=== PATIENT | female | born 1965 | race Caucasian/White ===

== ENCOUNTER 2018-07-16 08:00 | Emergency (ER) | payer SELFPAY ==
[~2018-07-16] VITALS: Ht 165.1 cm; Wt 101.2 kg
[~2018-07-16 08:00] MED LIST: BUPR150T20 PO; BUPR150T73; CARI350T PO; CITA40TA12 PO; DEXT10TA7
[2018-07-16 08:12] VITALS: BP 114/74
--- NOTE | 2018-07-16 08:43 | NUR ---
Pt to room from lobby.
--- NOTE | 2018-07-16 08:55 | NUR ---
PT AMBULATORY TO ROOM 17 W/ C/O LEFT SIDED SINUS PAIN W/ A PRODUCTIVE COUGH AND SOB X 11 DAYS. PT RESTING ON GURNEY. GOLDMAN.
== END 2018-07-16 09:24 | disposition home or self-care (01) ==
LOC: ED 09:00
DX: J20.9 Acute bronchitis, unspecified (principal); E11.9 Type 2 diabetes mellitus without complications
CPT/HCPCS: 93005; 99283

== ENCOUNTER 2019-11-29 18:16 | Emergency (ER) | payer BC, MEDICAID ==
[~2019-11-29] VITALS: Ht 165.1 cm; Wt 108.0 kg
[~2019-11-29 18:16] MED LIST changes: -BUPR150T20 PO; +BUPR150T28 PO
[2019-11-29 18:18] VITALS: BP 117/87
--- NOTE | 2019-11-29 18:56 | NUR ---
nil x 1
--- NOTE | 2019-11-29 20:40 | NUR ---
R VELCRO WRIST SPLINT WAS APPLIED BY MACHINE CEMENTER. PT LEFT ED BEFORE RECEIVING DISCHARGE PAPERS AND RX. AMBULATED OUT WITHOUT DIFFICULTY.
== END 2019-11-29 20:50 | disposition home or self-care (01) ==
LOC: ED 20:20
DX: S60.221A Contusion of right hand, initial encounter (principal); G89.11 Acute pain due to trauma; E11.9 Type 2 diabetes mellitus without complications; W54.1XXA Struck by dog, initial encounter; Y93.89 Activity, other specified; Y92.098 Other place in other non-institutional residence as the place of occurrence of the external cause; Y99.8 Other external cause status
CPT/HCPCS: 29125; 99283

== ENCOUNTER 2019-12-10 21:05 | Observation (INO) | payer MEDICAID, OTHER ==
[~2019-12-10] VITALS: Ht 165.1 cm; Wt 109.1 kg
[2019-12-10] MEDS ORDERED: ASPIRIN 81 MG TABLET CHEW ONE (21:46)
[2019-12-10] MEDS ORDERED: MORPHINE SULFATE 4 MG/ML, 1ML ONE (21:46)
[2019-12-10] MEDS ORDERED: ONDANSETRON 2MG/ML, 2ML ONE (21:46)
[2019-12-10 21:50] LABS: BASOPHILS # (AUTO) 0.06 x10^3/uL (0-0.1); BASOPHILS % (AUTO) 1 % (0-1); EOSINOPHILS % (AUTO) 3 % (1-7); LYMPHOCYTES # (AUTO) 2.28 x10^3/uL (1-3.4); LYMPHOCYTES % (AUTO) 29 % (22-44); MD NO; MEAN CORPUSCULAR HEMOGLOBIN 27.7 pg (27.0-34.8); MEAN CORPUSCULAR HGB CONC 33.1 g/dL (32.4-35.8); MEAN CORPUSCULAR VOLUME 83.8 fL (80-100); MEAN PLATELET VOLUME 7.6 fL (7.4-10.4); MONOCYTES # (AUTO) 0.71 x10^3/uL (0.2-0.8); MONOCYTES % (AUTO) 9 % (2-9); NEUTROPHILS # (AUTO) 4.65 x10^3/uL (1.8-6.8); NEUTROPHILS % (AUTO) 59 % (42-75); PLATELET COUNT 371 x10^3/uL (130-400); RED BLOOD COUNT 5.32 x10^6/uL (3.82-5.3); RED CELL DISTRIBUTION WIDTH 14.1 % (9.6-15.2)
[2019-12-10] MEDS: MORPHINE SULFATE 4 MG/ML, 1ML IVPush PRN (21:54)
[2019-12-10] MEDS ORDERED: ABILIFY PO (21:57)
[2019-12-10 22:00] LABS: ALANINE AMINOTRANSFERASE 28 U/L (12-78); ALBUMIN 3.4 g/dL (3.4-5.0); ANION GAP 7 mmol/L (5-15); CALCIUM 9.6 mg/dL (8.5-10.1); CHLORIDE 111 mmol/L (98-107)
[2019-12-10] MEDS ORDERED: ASPIRIN 81 MG TABLET CHEW PO ONE (22:00)
[2019-12-10] MEDS ORDERED: SODIUM CHLORIDE FLUSH 10ML SYR IVF ONE (22:00)
[2019-12-10] MEDS ORDERED: ONDANSETRON 2MG/ML, 2ML IVPush ONE (22:00)
[2019-12-10] MEDS ORDERED: NITROGLYCERIN SINGLE TAB 0.4 MG SL PRN (22:00)
--- NOTE | 2019-12-10 22:03 | NUR ---
PT CAME IN TODAY DUE TO CHEST PAIN THAT STARTED THIS MORNING AND HAS BEEN WORSENING THROUGHOUT THE DAY. PT STATES MOM HAS A HX OF IL. PT HAS NO CARDIAC HISTORY. PT PULSES 2+, GROSS NEURO AND CMS INTACT. NAD, VSS. WCTM. CALL LIGHT ON LAP, PT MEDICATED PER MAR. WAITING FOR TEST RESULTS.
[2019-12-10 22:04] LABS: ALKALINE PHOSPHATASE 123 U/L (45-117); BILIRUBIN,TOTAL 0.2 mg/dL (0.2-1.0); CREATININE 0.91 mg/dL (0.55-1.02); TOTAL PROTEIN 6.8 g/dL (6.4-8.2); TROPONIN I < 0.015 ng/mL (0.000-0.045)
[2019-12-10 23:31] VITALS: BP 105/66
[2019-12-11] MEDS ORDERED: NITROGLYCERIN 0.4 MG BOTTLE (25 TABS) SL PRN (00:30)
[2019-12-11] MEDS ORDERED: NITROGLYCERIN 0.4 MG/SPRAY SL PRN (00:30)
[2019-12-11] MEDS: MORPHINE SULFATE 4 MG/ML, 1ML IVPush PRN (00:39)
[2019-12-11 00:57] VITALS: BP 105/66
[2019-12-11] MEDS ORDERED: MORPHINE SULFATE 4 MG/ML, 1ML IVPush PRN (01:00)
[2019-12-11] MEDS ORDERED: DOCUSATE 100 MG CAPSULE PO PRN (01:30)
[2019-12-11] MEDS ORDERED: NICOTINE 21 MG/24 HR PATCH.TD24 TD SCH (01:30)
[2019-12-11] MEDS ORDERED: MELATONIN 5 MG TABLET PO PRN (01:30)
[2019-12-11] MEDS ORDERED: hydrALAzine 20 MG/ML, 1ML IVPush PRN (01:30)
[2019-12-11] MEDS ORDERED: MAALOX/HYOSCYAMINE/LIDOCAINE 45 ML BTL PO ONE ×2 (01:30→13:30)
[2019-12-11] MEDS ORDERED: morphine SULFATE 10 MG/ML, 1ML IVPush PRN (01:30)
[2019-12-11] MEDS ORDERED: ENOXAPARIN 40 MG/0.4 ML SQ SCH (01:30)
[2019-12-11] MEDS ORDERED: ACETAMINOPHEN 325 MG TABLET PO PRN (01:30)
[2019-12-11 05:27] LABS: CHOLESTEROL, TOTAL 165 mg/dL (140-239); TRIGLYCERIDES 123 mg/dL (50-200); VLDL CHOLESTEROL 25 mg/dL (0-25)
[2019-12-11 05:30] LABS: TROPONIN I < 0.015 ng/mL (0.000-0.045)
[2019-12-11 05:35] LABS: CHOL/HDL RATIO 3.1; HDL CHOL % 33 % (28-40); HDL CHOLESTEROL (DIRECT) 54 mg/dL (40-60); LDL CHOLESTEROL,CALCULATED 86 mg/dL (54-169); LDL/HDL RATIO 1.6 (0.5-3.0)
[2019-12-11 07:30] VITALS: BP 115/76
[2019-12-11] MEDS ORDERED: ENOXAPARIN 30 MG/0.3 ML SQ SCH (08:00)
[2019-12-11] MEDS ORDERED: REGADENOSON 0.4 MG/5 ML SYRINGE ONE (09:14)
[2019-12-11 12:11] LABS: TROPONIN I < 0.015 ng/mL (0.000-0.045)
[2019-12-11] MEDS ORDERED: NICO-487 TD (13:00)
[2019-12-11] MEDS ORDERED: ROSU20TA2 PO (13:00)
[2019-12-11] MEDS ORDERED: LIRA0.6P SC (13:00)
[2019-12-11] MEDS ORDERED: ASPI-515 PO (13:01)
[2019-12-11 13:06] VITALS: BP 104/70
[2019-12-11] MEDS ORDERED: KETOROLAC 30 MG/1 ML IVPush ONE (13:30)
== END 2019-12-11 18:43 | disposition home or self-care (01) ==
LOC: ED 22:28 → 5SO 23:16 → ED 23:29 → 5SO 23:30 → INTOOBSV 23:30
PROVIDERS: ADMIT Family Medicine; ATTEND Internal Medicine
DX: R07.2 Precordial pain (principal); J98.11 Atelectasis; E11.9 Type 2 diabetes mellitus without complications; E66.01 Morbid (severe) obesity due to excess calories; F17.210 Nicotine dependence, cigarettes, uncomplicated; F90.9 Attention-deficit hyperactivity disorder, unspecified type; I10 Essential (primary) hypertension; F32.9 Major depressive disorder, single episode, unspecified; Z88.2 Allergy status to sulfonamides; Z68.41 Body mass index [BMI] 40.0-44.9, adult
CPT/HCPCS: 36415; 71045; 78452; 80053; 80061; 83036; 83735; 84100; 84443; 84484; 85025; 93005; 93017; 93306; 96374; 96375; 96376; 99285; 99406; A9502; G0378; J1885; J2270; J2405; J2785

== ENCOUNTER 2020-07-22 21:10 | Emergency (ER) | payer OTHER ==
[~2020-07-22] VITALS: Ht 165.1 cm; Wt 107.1 kg
[~2020-07-22 21:10] MED LIST changes: +ABILIFY PO; +ASPI-963 PO; +LIRA0.6P SC; +NICO-587 TD; +ROSU20TA2 PO
[2020-07-22 21:12] VITALS: BP 138/75
--- NOTE | 2020-07-22 21:21 | NUR ---
Patient presents to ER c/o possible aspiration from chicken. Patient states she took a bite of chicken and felt it "go down the wrong tube." Patient states she developed right side pain soon after. Patient c/o coughing. Patient is in NAD. Respirations even and unlabored. Patient maintaining sat >95% RA.
[2020-07-22] MEDS ORDERED: IBUPROFEN 600 MG TABLET PO ONE (21:30)
[2020-07-22] MEDS ORDERED: IBUPROFEN 600 MG TABLET ONE (21:33)
[2020-07-22] MEDS ORDERED: AZITHROMYCIN 500 MG TABLET PO ONE (22:30)
[2020-07-22] MEDS ORDERED: AZITHROMYCIN 250 MG TABLET ONE (22:41)
== END 2020-07-22 22:53 | disposition home or self-care (01) ==
LOC: ED 22:47
DX: J69.0 Pneumonitis due to inhalation of food and vomit (principal); F17.210 Nicotine dependence, cigarettes, uncomplicated; I10 Essential (primary) hypertension; E11.9 Type 2 diabetes mellitus without complications
CPT/HCPCS: 71046; 99283; 99406

== ENCOUNTER 2020-07-24 05:57 | Emergency (ER) | payer OTHER ==
[~2020-07-24] VITALS: Ht 165.1 cm; Wt 106.0 kg
[2020-07-24] MEDS ORDERED: KETOROLAC 30 MG/1 ML IM ONE (06:30)
[2020-07-24] MEDS ORDERED: KETOROLAC 30 MG/1 ML ONE (06:41)
[2020-07-24] MEDS ORDERED: AMPH20TA2 PO (07:02)
[2020-07-24] MEDS ORDERED: SODIUM CHLORIDE FLUSH 10ML SYR IVF ONE (07:30)
[2020-07-24 07:36] LABS: BASOPHILS % (AUTO) 1 % (0-1); EOSINOPHILS % (AUTO) 4 % (1-7); LYMPHOCYTES % (AUTO) 26 % (22-44); MEAN CORPUSCULAR HEMOGLOBIN 28.5 pg (27.0-34.8); MEAN CORPUSCULAR HGB CONC 33.6 g/dL (32.4-35.8); MEAN PLATELET VOLUME 7.3 fL (7.4-10.4); MONOCYTES % (AUTO) 10 % (2-9); NEUTROPHILS % (AUTO) 59 % (42-75); PLATELET COUNT 327 x10^3/uL (130-400); RED BLOOD COUNT 5.25 x10^6/uL (3.82-5.3); RED CELL DISTRIBUTION WIDTH 13.9 % (9.6-15.2)
[2020-07-24 07:38] LABS: MD NO
[2020-07-24 07:44] LABS: ALBUMIN 3.6 g/dL (3.4-5.0); ANION GAP 4 mmol/L (5-15); CHLORIDE 112 mmol/L (98-107); CREATININE 0.88 mg/dL (0.55-1.02)
--- NOTE | 2020-07-24 08:21 | NUR ---
CT WAITING FOR IV ACCESS
--- NOTE | 2020-07-24 08:28 | NUR ---
LATE ENTRY (819): PT AMBULATED TO BR WITH UPRIGHT/STEADY GAIT. RETURNED TO ROOM WITHOUT INCIDCENT. PIV ESTABLISHED. CT NOTIFIED, PT READY FOR CT.
[2020-07-24] MEDS ORDERED: OMNIPAQUE 350 MG/ML, 100ML BOTTLE ONE (08:50)
[2020-07-24 09:26] VITALS: BP 126/69
--- NOTE | 2020-07-24 09:52 | NUR ---
Patient given discharge instructions and they have confirmed that they understand the instructions. Patient ambulatory with steady gait.
== END 2020-07-24 09:53 | disposition home or self-care (01) ==
LOC: ED 07:11
DX: M94.0 Chondrocostal junction syndrome [Tietze] (principal); J69.0 Pneumonitis due to inhalation of food and vomit; R07.89 Other chest pain; R06.00 Dyspnea, unspecified; I10 Essential (primary) hypertension; R06.02 Shortness of breath; R05 Cough; R94.31 Abnormal electrocardiogram [ECG] [EKG]; E11.9 Type 2 diabetes mellitus without complications
CPT/HCPCS: 36415; 71045; 71275; 80048; 82040; 85025; 93005; 96372; 99285; J1885; Q9967